=== PATIENT | male | born 1995 | race Caucasian/White ===

== ENCOUNTER 2016-07-31 12:45 | Emergency (ER) | payer OTHER ==
[2016-07-31 12:52] VITALS: BP 115/62; PULSE 70; TEMP 98.8; BMI 20.3
[2016-07-31] MEDS ORDERED: KETOROLAC TROMETHAMINE 60 MG/2 ML VIAL IM ONE (13:50)
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
[2016-07-31] MEDS ORDERED: KETOROLAC TROMETHAMINE 60 MG/2 ML VIAL ONE (13:53)
== END 2016-07-31 13:57 | disposition home or self-care (01) ==
LOC: JERFT 12:45
PROC: 3E0233Z Introduction of Anti-inflammatory into Muscle, Percutaneous Approach (ICD-10-PCS; principal; 2016-07-31)
DX: M54.5 Low back pain (principal); V43.52XA Car driver injured in collision with other type car in traffic accident, initial encounter; Y93.89 Activity, other specified; Y92.412 Parkway as the place of occurrence of the external cause
CPT/HCPCS: 99281-25